=== PATIENT | female | born 1945 | race American Indian/Alaskan Native ===

== ENCOUNTER 2021-11-07 21:39 | Emergency (ER) | payer SELFPAY ==
[2021-11-07 23:29] LABS: Hematocrit 34.7 % (30.3-42.9); Mean Corpuscular HGB Conc 32 % (30-34); Mean Corpuscular Volume 86 fl (79-97); Platelet Count 258 K/mm3 (140-440); Red Blood Count 4.05 M/mm3 (3.65-5.03); Red Cell Distribution Width 16.3 % (13.2-15.2)
[2021-11-08 00:38] LABS: Blood Urea Nitrogen 19 mg/dL (7-17); Calcium 9.7 mg/dL (8.4-10.2); Hemolysis Index 6
[2021-11-08 01:08] LABS: BUN/Creatinine Ratio 32
[2021-11-08 02:25] LABS: Anisocytosis 1+; Basophils % (Manual) 0 % (0.0-1.8); Platelet Estimate Consistent w Auto; Total Cells Counted 100
== END 2021-11-08 01:17 | disposition left against medical advice (07) ==
LOC: ED 21:39
DX: K92.1 Melena (principal); Z53.21 Procedure and treatment not carried out due to patient leaving prior to being seen by health care provider
CPT/HCPCS: 36415; 80048; 85007; 85025

== ENCOUNTER 2021-11-29 19:32 | Emergency (ER) | payer MEDICARE ==
--- NOTE | 2021-11-29 20:41 | XRay Report ---
CHEST 2 VIEWS INDICATION / CLINICAL INFORMATION: Chest Pain. COMPARISON: None available. FINDINGS: SUPPORT DEVICES: None. HEART / MEDIASTINUM: No significant abnormality. LUNGS / PLEURA: No significant pulmonary or pleural abnormality. No pneumothorax. ADDITIONAL FINDINGS: No significant additional findings. IMPRESSION: 1. No acute findings. Signer Name: Negro Carvalho MD Signed: 11/29/2021 8:37 PM Workstation Name: [id number]
[2021-11-30 02:36] LABS: Basophils % (Auto) 0.4 % (0.0-1.8); Eosinophils # (Auto) 0.4 K/mm3 (0.0-0.4); Hematocrit 36.2 % (30.3-42.9); Hemoglobin 11.3 gm/dl (10.1-14.3); Lymphocytes # (Auto) 3.1 K/mm3 (1.2-5.4); Lymphocytes % (Auto) 40.6 % (13.4-35.0); Mean Corpuscular HGB Conc 31 % (30-34); Mean Corpuscular Volume 85 fl (79-97); Monocytes # (Auto) 0.7 K/mm3 (0.0-0.8); Monocytes % (Auto) 8.6 % (0.0-7.3); Platelet Count 259 K/mm3 (140-440); Red Blood Count 4.24 M/mm3 (3.65-5.03); Red Cell Distribution Width 15.4 % (13.2-15.2)
[2021-11-30 02:44] LABS: INR 0.9 (0.87-1.13)
[2021-11-30 02:45] LABS: Partial Thromboplastin Time 28.4 Sec. (24.2-36.6)
[2021-11-30 03:03] LABS: Alanine Aminotransferase 13 units/L (7-56); Albumin 4.2 g/dL (3.9-5); Blood Urea Nitrogen 16 mg/dL (7-17); Calcium 9.4 mg/dL (8.4-10.2); Hemolysis Index 4
[2021-11-30 03:14] LABS: BUN/Creatinine Ratio 27
[2021-11-30] MEDS ORDERED: HYDROcodone/ACETAMINOPHEN 5-325 MG TAB PO ONE (03:18)
[2021-11-30] MEDS ORDERED: IBUPROFEN 800 MG TAB PO ONE (03:18)
[2021-11-30] MEDS ORDERED: cloNIDine 0.2 MG TAB PO ONE (03:19)
--- NOTE | 2021-11-30 03:21 | Emergency Department Report ---
HPI - HPI HPI: Room 22 The patient is a 76-year-old female present with a chief complaint of left shoulder pain. The patient states approximate 2 days ago she developed pain near the left axilla and behind the left scapula that worsens with range of motion of the left shoulder. Patient denies any preceding trauma. Patient denies shortness of breath or diaphoresis. Patient currently gives her pain a score of 8/10 <BRANDO BRYANT - Last Filed: 11/30/21 05:19> <PAVAN QUIROS - Last Filed: 11/30/21 07:43> - General Chief Complaint: Chest Pain Time Seen by Provider: 11/30/21 02:54 ED Past Medical Hx - Past Medical History Hx Hypertension: Yes - Surgical History Additional Surgical History: Hysterectomy, - Family History Family history: no significant - Social History Smoking Status: Never Smoker Substance Use Type: None (Denies illicit drug use) <BRANDO BRYANT - Last Filed: 11/30/21 05:19> <PAVAN QUIROS - Last Filed: 11/30/21 07:43> - Medications Home Medications: Home Medications Medication Instructions Recorded Confirmed Last Taken Type HYDROcodone/APAP 5-325 [[place] 1 - 2 each PO Q6HR PRN #20 tablet 11/30/21 Un known Rx 5/325] Ibuprofen [Motrin 800 MG tab] 800 mg PO Q8HR PRN #20 tablet 11/30/21 Unknown Rx ED Review of Systems ROS: Stated complaint: CHEST PAIN Other details as noted in HPI Constitutional: denies: diaphoresis Eyes: denies: eye pain ENT: denies: throat pain Respiratory: denies: shortness of breath Cardiovascular: as per HPI Endocrine: no symptoms reported Gastrointestinal: denies: abdominal pain Genitourinary: denies: dysuria Musculoskeletal: myalgia Neurological: denies: headache <BRANDO BRYANT - Last Filed: 11/30/21 05:19> ROS: Stated complaint: CHEST PAIN Other details as noted in HPI <PAVAN QUIROS - Last Filed: 11/30/21 07:43> Physical Exam - Physical Exam Vital Signs: Vital Signs 11/29/21 11/30/21 19:52 01:38 Temperature 97.6 F Pulse Rate 80 60 Respiratory 22 15 Rate Blood Pressure 222/86 Blood Pressure 228/104 [Right] O2 Sat by Pulse 99 99 Oximetry Physical Exam: GENERAL: The patient is well-developed well-nourished female lying on stretcher not appearing to be in acute distress. [] HEENT: Normocephalic. Atraumatic. Extraocular motions are intact. Patient has moist mucous membranes. NECK: Supple. Trachea midline CHEST/LUNGS: Clear to auscultation. There is no respiratory distress noted. HEART/CARDIOVASCULAR: Regular. There is no tachycardia. There is no gallop rub or murmur. ABDOMEN: Abdomen is soft, nontender. Patient has normal bowel sounds. There is no abdominal distention. SKIN: There is no rash. There is no edema. There is no diaphoresis. NEURO: The patient is awake, alert, and oriented. The patient is cooperative. The patient has no focal neurologic deficits. The patient has normal speech. GCS 15 MUSCULOSKELETAL: There is tenderness to palpation adjacent to the scapular blade on the left. There is tenderness to palpation left upper chest/left shoulder anteriorly. The patient's pain is exacerbated with range of motion of the left shoulder. Normal median/radial/ulnar nerve function <BRANDO BRYANT - Last Filed: 11/30/21 05:19> - Physical Exam Vital Signs: Vital Signs 11/29/21 11/30/21 11/30/21 19:52 01:38 03:28 Temperature 97.6 F Pulse Rate 80 60 65 Respiratory 22 15 Rate Blood Pressure 222/86 215/104 Blood Pressure 228/104 [Right] O2 Sat by Pulse 99 99 Oximetry 11/30/21 11/30/21 11/30/21 03:44 04:04 04:59 Temperature Pulse Rate 59 L 60 56 L Respiratory 19 15 15 Rate Blood Pressure Blood Pressure 243/87 190/71 131/59 [Right] O2 Sat by Pulse 98 98 95 Oximetry 11/30/21 06:34 Temperature Pulse Rate 52 L Respiratory 18 Rate Blood Pressure Blood Pressure 141/61 [Right] O2 Sat by Pulse 97 Oximetry <PAVAN QUIROS - Last Filed: 11/30/21 07:43> ED Course Vital Signs 11/29/21 11/30/21 19:52 01:38 Temperature 97.6 F Pulse Rate 80 60 Respiratory 22 15 Rate Blood Pressure 222/86 Blood Pressure 228/104 [Right] O2 Sat by Pulse 99 99 Oximetry <BRANDO BRYANT - Last Filed: 11/30/21 05:19> Vital Signs 11/29/21 11/30/21 11/30/21 19:52 01:38 03:28 Temperature 97.6 F Pulse Rate 80 60 65 Respiratory 22 15 Rate Blood Pressure 222/86 215/104 Blood Pressure 228/104 [Right] O2 Sat by Pulse 99 99 Oximetry 11/30/21 11/30/21 11/30/21 03:44 04:04 04:59 Temperature Pulse Rate 59 L 60 56 L Respiratory 19 15 15 Rate Blood Pressure Blood Pressure 243/87 190/71 131/59 [Right] O2 Sat by Pulse 98 98 95 Oximetry 11/30/21 06:34 Temperature Pulse Rate 52 L Respiratory 18 Rate Blood Pressure Blood Pressure 141/61 [Right] O2 Sat by Pulse 97 Oximetry <PAVAN QUIROS - Last Filed: 11/30/21 07:43> ED Medical Decision Making - Lab Data Result diagrams: 11/30/21 02:13 11/30/21 02:13 - Radiology Data Radiology results: report reviewed (Chest x-ray, left shoulder x-ray), image reviewed (Chest x-ray, left shoulder x-ray) interpreted by me: Chest x-ray-no definite focal infiltrates, no pneumothorax Left shoulder x-ray-no acute fracture, no dislocation [address] [address] XRay Report Signed Patient: BLUNT,ROBERT MR#: [id number] 71 : 1945 Acct:[id number] Age/Sex: 76 / F ADM Date: 11/29/21 Loc: ED Attending Dr: Ordering Physician: ED MD GURJIT Date of Service: 11/29/21 Procedure(s): XR chest routine 2V Accession Number(s): [id number] cc: ED MD GURJIT Fluoro Time In Minutes: CHEST 2 VIEWS INDICATION / CLINICAL INFORMATION: Chest Pain. COMPARISON: None available. FINDINGS: SUPPORT DEVICES: None. HEART / MEDIASTINUM: No significant abnormality. LUNGS / PLEURA: No significant pulmonary or pleural abnormality. No pneumothorax. ADDITIONAL FINDINGS: No significant additional findings. IMPRESSION: 1. No acute findings. Signer Name: Negro Carvalho MD Signed: 11/29/2021 8:37 PM Workstation Name: [id number] Transcribed By: CW Dictated By: JOCELINE CARVALHO MD Electronically Authenticated By: JOCELINE CARVALHO MD Signed Date/Time: 11/29/212036 DD/ 35 TD/TT: [facility] [address] [place] [address] XRay Report Signed Patient: ROBERT SOLO MR#: [id number] 71 : 1945 Acct:[id number] Age/Sex: 76 / F ADM Date: 11/29/21 Loc: ED Attending Dr: Ordering Physician: BRANDO BRYANT MD Date of Service: 11/30/21 Procedure(s): XR shoulder 2+V LT Accession Number(s): [id number] cc: BRANDO BRYANT MD Fluoro Time In Minutes: LEFT SHOULDER 3 VIEW(S) INDICATION / CLINICAL INFORMATION: Pain with movement. COMPARISON: None available. FINDINGS: No fracture, dislocation, or significant soft tissue abnormality is demonstrated. No radiopaque foreign bodies are identified. IMPRESSION: 1. No acute findings. No significant abnormality. Signer Name: Lachelle Massey II, MD Signed: 11/30/2021 3:51 AM Workstation Name: [id number] Transcribed By: VISHNU Dictated By: LACHELLE MASSEY II, MD Electronically Authenticated By: LACHELLE MASSEY II, MD Signed Date/Time: 11/30/21350 DD/ 0 TD/TT: - Differential Diagnosis Rotator cuff injury, bursitis, arthralgia, ACS, PE, hypertensive <BRANDO BRYANT - Last Filed: 11/30/21 05:19> - Lab Data Result diagrams: 11/30/21 02:13 11/30/21 02:13 - Medical Decision Making handed over to me by Dr Bryant at 6 am, to check on trop and V/q Scan , negative trop times 2 and normal perfusion <PAVAN QUIROS - Last Filed: 11/30/21 07:43> Critical care attestation.: If time is entered above; I have spent that time in minutes in the direct care of this critically ill patient, excluding procedure time. <BRANDO BRYANT - Last Filed: 11/30/21 05:19> Critical care attestation.: If time is entered above; I have spent that time in minutes in the direct care of this critically ill patient, excluding procedure time. <PAVAN QUIROS - Last Filed: 11/30/21 07:43> ED Disposition <BRANDO BRYANT - Last Filed: 11/30/21 05:19> Is pt being admited?: No Does the pt Need Aspirin: No <PAVAN QUIROS - Last Filed: 11/30/21 07:43> Clinical Impression: Left shoulder pain Disposition: 01 HOME / SELF CARE / HOMELESS Condition: Stable Instructions: Rotator Cuff Tendinitis, Musculoskeletal Pain, Rotator Cuff Tear Prescriptions: Ibuprofen [Motrin 800 MG tab] 800 mg PO Q8HR PRN #20 tablet PRN Reason: Pain, Moderate (4-6) HYDROcodone/APAP 5-325 [[place] 5/325] 1 - 2 each PO Q6HR PRN #20 tablet PRN Reason: Pain Referrals: ANITA WIGGINS MD [Staff Physician] - 3-5 Days (Dr. Wiggins is an orthopedic surgeon. Please follow-up with him for further evaluation)
--- NOTE | 2021-11-30 03:56 | XRay Report ---
LEFT SHOULDER 3 VIEW(S) INDICATION / CLINICAL INFORMATION: Pain with movement. COMPARISON: None available. FINDINGS: No fracture, dislocation, or significant soft tissue abnormality is demonstrated. No radiopaque forei gn bodies are identified. IMPRESSION: 1. No acute findings. No significant abnormality. Signer Name: Luis Elizabeth II, MD Signed: 11/30/2021 3:51 AM Workstation Name: [id number]
--- NOTE | 2021-11-30 07:39 | Nuclear Medicine Report ---
NUCLEAR MEDICINE PERFUSION LUNG SCAN INDICATION / CLINICAL INFORMATION: Left chest/left back pain. TECHNIQUE: 5.5 mCi of Tc-99m MAA were given by IV. COMPARISON: Chest radiograph dated 11/29/2021. FINDINGS: PERFUSION: Normal perfusion. ADDITIONAL FINDINGS: None. IMPRESSION: 1. Normal perfusion. Signer Name: Luis Elizabeth II, MD Signed: 11/30/2021 7:35 AM Workstation Name: [id number]
[2021-11-30 10:25] VITALS: BP 134/78
--- NOTE | 2021-12-01 09:56 | Electrocardiograph Report ---
[facility] Test Date: 2021-11-29 Test Time: 19:39:40 Pat Name: JUNIOR SOLO Department: Room: Gender: F Fur Blower: JINA : 1945 Requested By: BRANDO BRYANT Order Number: [id number] Reading MD: Ken Nicolas Measurements Intervals Toney Rate: 79 P: 67 IL: 142 QRS: 26 QRSD: 75 T: 75 QT: 384 QTc: 442 Interpretive Statements Sinus rhythm nonspecific st-t Probable left atrial enlargement No previous ECG available for comparison Electronically Signed On 12-01-2021 9:55:53 EDT by Ken Nicolas
== END 2021-11-30 10:24 | disposition home or self-care (01) ==
LOC: ED 19:32
DX: M25.512 Pain in left shoulder (principal); I10 Essential (primary) hypertension
CPT/HCPCS: 36415; 71046; 73030; 78580; 80053; 84484; 85025; 85379; 85610; 85730; 93005; 99285; A9540; 99284